=== PATIENT | male | born 1935 | race Caucasian/White ===

== ENCOUNTER 2020-12-21 19:59 | Emergency (ER) | payer MEDICARE, SELFPAY ==
--- NOTE | ~2020-12-21 | XR_ITS ---
XR chest 1V portable 12/21/2020 20:45 Indication: Stroke protocol Procedure: AP portable chest Comparison: No prior studies for comparison. Findings: Bibasilar airspace disease. Cardiomegaly. No significant effusion. No edema. No pneumothora x. No acute osseous abnormality. Impression: 1: Bibasilar airspace disease which may represent atelectasis and/or pneumonia. 2: Cardiomegaly. Reviewed, dictated and finalized at location A. Impression: 1: Bibasilar airspace disease which may represent atelectasis and/or pneumonia. 2: Cardiomegaly.
--- NOTE | ~2020-12-21 | CT_ITS ---
EXAMINATION: CT brain wo con DATE: 12/21/2020 20:09 INDICATION: CVA. Stroke protocol. TECHNIQUE: Computed tomography (CT) of the head was performed without intravenous contrast. The dose- length product was 605.33 mGy-cm. Automated exposure control and iterative reconstruction technique w ere employed. COMPARISON: None FINDINGS: Generalized atrophy. There are scattered mild periventricular and subcortical white matter changes, most likely related to small vessel ischemic disease (microangiopathy). No acute intracrania l hemorrhage, infarction, mass or mass effect. There is intracranial atherosclerosis. Basilar cistern s are patent. Paranasal sinuses and mastoids are pneumatized. No depressed skull fractures. IMPRESSION: 1. No acute intracranial abnormality. 2: Chronic age-related findings. As per stroke protocol, I called these results to emergency room, discussed with Dr. Yo greer MD at 12/21/2020 20:13 CDT. Reviewed, dictated and finalized at location A. IMPRESSION: 1. No acute intracranial abnormality. 2: Chronic age-related findings. As per stroke protocol, I called these results to emergency room, discussed wit h Dr. Yo Brown MD at 12/21/2020 20:13 CDT.
[2020-12-21 20:03] VITALS: BP 175/85; PULSE 80; RESP 27; TEMP 37.1; O2SAT 95
--- NOTE | 2020-12-21 20:03 | ECG_ITS ---
Measurements Intervals [place] Rate: 75 P: 52 AK: 178 QRS: 39 QRSD: 98 T: 124 QT: 396 QTc: 443 Interpretive Statements SINUS RHYTHM DELAYED PRECORDIAL R/S TRANSITION LEFT VENTRICULAR HYPERTROPHY AND ST-T CHANGE BORDERLINE ST-T WAVE ABNORMALITY- INF/HIGH LAT LEADS BORDERLINE ECG Electronically Signed On 12-22-2020 7:39:56 CDT by Lino Kilgore D.O.
--- NOTE | 2020-12-21 20:06 | ED.NEUROSD ---
HPI - Neuro Symptoms/Deficit General Chief Complaint: Suspected CVA Stated Complaint: other Time Seen by Provider: 12/21/20 20:05 Source: family Mode of arrival: other Limitations: no limitations History of Present Illness HPI Narrative: Patient brought in by daughter after sudden onset of slurred speech, facial droop and decreased responsiveness that started approximately 10 minutes prior to arrival. Daughter states that they were on their way to get at a restaurant when the symptoms suddenly happened. Related Data Home Medications Medication Instructions Recorded Confirmed aspirin 81 mg PO DAILY 12/21/20 atorvastatin 12/21/20 lisinopril 12/21/20 metoprolol tartrate 12/21/20 pantoprazole PO 12/21/20 quetiapine 12/21/20 tamsulosin mg PO 12/21/20 Allergies Allergy/AdvReac Type Severity Reaction Status Date / Time NKDA Allergy Unknown Unknown Uncoded 12/21/20 20:38 Review of Systems Review of Systems: ROS unobtainable: Yes unobtainable due to medical condition and unobtainable due to mental status [facility] Social History Social History Gender identity (if verbalized by the patient): Male Comments Past medical history: Coronary artery disease Family history: Noncontributory Social history: Non-smoker no EtOH use Exam Const: General: cooperative, healthy appearing, comfortable, well developed, alert and awake Orientation/consciousness: oriented to person and oriented to place Limitations: no limitations HENMT: Head: normal to inspection, normocephalic and atraumatic Ears: hearing grossly normal bilaterally, TM normal on the right and TM normal on the left General nose exam: Normal external nose present, Normal nares present and No nasal discharge present Face and sinus: normal facial exam Mouth: Yes Normal oral and palatal mucosa present, Yes lip normal, Yes tongue normal and Yes oropharynx normal Throat: posterior oropharynx normal, tonsils normal and uvula midline Eyes: General: appearance normal, both eyes and all related structures Pupils: Equal, round and reactive pupils present EOM: EOMs intact bilaterally Neck: Neck: normal visual inspection, full ROM, no lymphadenopathy and no meningeal signs Chest: Chest palpation & inspection: normal inspection of the chest Resp: Effort & Inspection: normal respiratory effort, able to speak in complete sentences, no respiratory distress and not tachypneic Auscultation: clear to auscultation bilaterally, no crackles, no rales, no rhonchi and no wheezes Cardio: Rate: regular rate Rhythm: regular rhythm GI: Inspection: normal to inspection GI Palp: No abdominal tenderness, Yes Soft to palpation, No Tenderness to palpation present (GI), No Guarding due to palpation present (GI), No Rigid due to palpation and No Rebound tenderness present Auscultation: normal bowel sounds : General: Yes no CVA tenderness Back/Spine/Pelvis: Back: no CVA tenderness Skin: General skin exam: normal color, no rashes or lesions noted, elasticity normal and turgor normal Neuro: Cranial nerves: Yes Equal, round and reactive pupils present Extrem: General: normal to inspection and capillary refill normal Psych: Appearance: grossly normal and well kempt Mental Status: mental status grossly normal Attitude: cooperative Course Vital Signs Vital signs: Vital Signs Pulse Rate 80 12/21/20 20:03 Respiratory Rate 27 H 12/21/20 20:03 Blood Pressure 175/85 H 12/21/20 20:03 Pulse Oximetry 95 12/21/20 20:03 Pulse Rate 87 12/21/20 20:57 Respiratory Rate 25 H 12/21/20 20:57 Blood Pressure 154/73 H 12/21/20 20:57 Pulse Oximetry 96 12/21/20 20:57 MDM - Neuro Symptoms/Deficit MDM Narrative Medical decision making narrative: I reviewed his labs and his CTA. Stroke protocol started. His NIH stroke score is 15. Time of onset is 10 to 15 minutes prior to arrival, hence patient qualifies for TPA. tPA given per stroke protocol. Daughter wants the p
[2020-12-21 20:16] VITALS: BP 168/78; PULSE 77; RESP 18; O2SAT 97
[2020-12-21 20:17] LABS: Basophils Percent Auto 0.5 % (0.2-1.2); Eosinophils Absolute Auto 0.2 K/mm3 (0-0.3); Hematocrit 36.3 % (42.0-52.0); Hemoglobin 11.4 g/dL (14.0-18.0); Immature Granulocyte Absolute 0.01 K/mm3 (0.00-0.031); Immature Granulocyte Percent A 0.2 % (0-0.5); Lymphocytes Absolute Auto 1.89 K/mm3 (0.9-3.2); Lymphocytes Percent Auto 31.3 % (18.3-44.2); Mean Corpuscular HGB Conc 31.4 g/dl (32-36); Mean Corpuscular Hemoglobin 29.2 pg (26-34); Mean Corpuscular Volume 93.1 fl (80-100); Monocytes Absolute Auto 0.8 K/mm3 (0.1-0.6); Monocytes Percent Auto 12.8 % (2.6-8.5); Neutrophils Absolute Auto 3.2 K/mm3 (1.3-6.7); Neutrophils Percent Auto 52.2 % (45.5-73.1); Platelet Count Result 232 k/mm3 (150-375); Red Cell Distribution Width 16.5 % (11.5-14.5)
[2020-12-21 20:26] LABS: INR 1.1; Prothrombin Time 14.5 Seconds (11.1-14.7)
[2020-12-21 20:27] LABS: Alanine Aminotransferase 19 U/L (4-50); Alkaline Phosphatase 49 U/L (38-126); Anion Gap 6 mmol/L (8-16); Aspartate Amino Transferase 34 U/L (17-59); Blood Urea Nitrogen 28 mg/dL (9-20); Calcium 9.4 mg/dL (8.4-10.2); Carbon Dioxide 29 mmol/L (22-30); Chloride 105 mmol/L (98-107); Estimated Glomerular Filt Rate 52; Glucose 94 mg/dL (75-110); Partial Thromboplastin Time 29.3 SECONDS (22.3-36.8); Potassium 4.4 mmol/L (3.4-5.0); Sodium 140 mmol/L (137-145)
[2020-12-21 20:38] LABS: Troponin I 0.034 ng/mL (0.000-0.034)
[2020-12-21 20:57] VITALS: BP 154/73; PULSE 87; RESP 25; O2SAT 95; O2SAT 96
--- NOTE | 2020-12-21 21:07 | PC.NURSE ---
CTA CANCELLED PER VERBAL ORDER FROM DR FARAZ GONZALEZ WILL DO UPON ARRIVAL TO THEIR FACILITY.
[2020-12-21 21:12] VITALS: BP 110/52; PULSE 75; RESP 24; O2SAT 92; O2SAT 95
[2020-12-21 21:27] VITALS: BP 138/77; PULSE 79; RESP 21; O2SAT 95
[2020-12-21 21:41] VITALS: BP 138/77; PULSE 74; RESP 25; O2SAT 94
[2020-12-25 07:10] LABS: Glucose Point of Care 103 mg/dl (65-105)
== END 2020-12-21 21:51 | disposition short-term general hospital (02) ==
PROVIDERS: Emergency Provider Emergency Medicine
DX: I63.9 Cerebral infarction, unspecified (principal); I25.10 Atherosclerotic heart disease of native coronary artery without angina pectoris; R29.715 NIHSS score 15; R94.31 Abnormal electrocardiogram [ECG] [EKG]; I51.7 Cardiomegaly; Z79.82 Long term (current) use of aspirin
CPT/HCPCS: 36415; 37195; 70450; 71045; 80053; 82948; 84484; 85025; 85610; 85730; 93005; 99285; J2997

== ENCOUNTER 2021-04-21 10:59 | Emergency (ER) | payer MEDICARE, SELFPAY ==
[2021-04-21] VITALS (30 sets, daily range): BP systolic 112–140; BP diastolic 46–119; PULSE 45–70; RESP 11–42; TEMP 36.8; O2SAT 92–100
--- NOTE | ~2021-04-21 | XR_ITS ---
EXAMINATION: XR chest 2V EXAM DATE: 04/21/2021 11:41 INDICATION: Syncope. TECHNIQUE: Frontal and lateral projections of the chest obtained and reviewed. Comparison is made to prior examination from 12/21/2020. FINDINGS: There is moderate enlargement of the cardiac silhouette, cardiomegaly and/or pericardial e ffusion. Similar appearance on prior study. No confluent consolidation, pneumothorax or pleural effus ion suspected. There is pulmonary vascular congestion. IMPRESSION: Cardiomegaly and/or pericardial effusion unchanged. Reviewed, dictated and finalized at location A.
--- NOTE | ~2021-04-21 | CT_ITS ---
EXAMINATION: CT brain wo [facility] EXAM DATE: 04/21/2021 12:06 INDICATION: Syncope. TECHNIQUE: Spiral CT of the head was performed without contrast. Axial, coronal and sagittal images were reviewed. The dose-length product (DLP) for this examination was 605.33 mGy-cm. The exposure w as tailored according to patient size, and iterative reconstruction (ASIR) was used as additional dos e reduction technique. Comparison is made to prior examination from 12/21/2020. FINDINGS: There is no acute intraparenchymal hemorrhage. No evidence of intraparenchymal brain mass lesion. No evidence of acute infarction. Please note that initial head CT has limited sensitivity f or small or acute infarctions. There is mild periventricular and subcortical hypodensity, nonspecific but probably related to small vessel ischemic disease. There is moderate prominence of the sulci a nd ventricles related to cerebral atrophy. There is intracranial carotid arteriosclerosis. There a re no extra-axial collections. There is no mass effect or midline shift. The orbits are unremarkabl e. Soft tissue is unremarkable. The visualized sinuses and mastoid air cells are well aerated. IMPRESSION: 1. No acute intracranial findings. 2. Chronic age related findings. Reviewed, dictated and finalized at location A.
--- NOTE | 2021-04-21 11:04 | ECG_ITS ---
Measurements Intervals [place] Rate: 53 P: -8 IN: 225 QRS: 56 QRSD: 85 T: -74 QT: 431 QTc: 405 Interpretive Statements SINUS BRADYCARDIA WITH FIRST DEGREE AV BLOCK LEFT VENTRICULAR HYPERTROPHY AND ST-T CHANGE ST-T WAVE ABNORMALITY IN INFERIOR LEADS- CONSIDER ISCHEMIA BASELINE WANDER- I, II, AVR, AVL, AVF ABNORMAL ECG Electronically Signed On 04-21-2021 11:19:41 CDT by Lino Kilgore D.O.
[2021-04-21 11:48] LABS: Basophils Percent Auto 0.5 % (0.2-1.2); Eosinophils Absolute Auto 0.1 K/mm3 (0-0.3); Eosinophils Percent Auto 2.5 % (0-4.4); Hematocrit 35.3 % (42.0-52.0); Hemoglobin 11.2 g/dL (14.0-18.0); Immature Granulocyte Absolute 0.02 K/mm3 (0.00-0.031); Immature Granulocyte Percent A 0.4 % (0-0.5); Lymphocytes Absolute Auto 0.99 K/mm3 (0.9-3.2); Lymphocytes Percent Auto 17.8 % (18.3-44.2); Mean Corpuscular HGB Conc 31.7 g/dl (32-36); Mean Corpuscular Hemoglobin 30.5 pg (26-34); Mean Corpuscular Volume 96.2 fl (80-100); Mean Platelet Volume 10.7 fl (7.4-10.4); Monocytes Absolute Auto 0.6 K/mm3 (0.1-0.6); Monocytes Percent Auto 11.5 % (2.6-8.5); Neutrophils Absolute Auto 3.8 K/mm3 (1.3-6.7); Neutrophils Percent Auto 67.3 % (45.5-73.1); Platelet Count Result 223 k/mm3 (150-375); Red Blood Count 3.67 M/mm3 (4.6-6.20); Red Cell Distribution Width 14.1 % (11.5-14.5); White Blood Count 5.6 K/mm3 (4.5-10.0)
[2021-04-21 11:58] LABS: INR 1.2; Partial Thromboplastin Time 30.8 SECONDS (22.3-36.8); Prothrombin Time 15.2 Seconds (11.1-14.7)
[2021-04-21 12:03] LABS: Anion Gap 7 mmol/L (8-16); Blood Urea Nitrogen 30 mg/dL (9-20); Calcium 9.2 mg/dL (8.4-10.2); Carbon Dioxide 25 mmol/L (22-30); Chloride 106 mmol/L (98-107); Estimated CRCL calculation 34 ml/min; Estimated Glomerular Filt Rate 48; Glucose 124 mg/dL (65-110); Potassium 4.2 mmol/L (3.4-5.0); Sodium 138 mmol/L (137-145)
[2021-04-21 12:11] LABS: D Dimer 0.27 ug/mL (<0.48)
[2021-04-21 12:15] LABS: NT Pro B Type Natriuretic Pept 4700 pg/mL (5-100); Troponin I 0.023 ng/mL (0.000-0.034)
[2021-04-21 13:27] LABS: Add Urine Microscopic? YES; Appearance Urine Clear (Clear); Bilirubin Urine Negative (Negative); Blood Urine 1+ (Negative); Color Urine Yellow (Yellow); Glucose Urine UA Negative (Negative); Ketones Urine Negative (Negative); Leukocyte Esterase Ur Negative LEU/UL (Negative); Mucus Urine Rare /lpf; Nitrate Urine Negative (Negative); Protein Urine Negative (Negative); Specific Grav Ur 1.019 (1.001-1.035); Squamous Epithelial Cell Urine Rare /hpf (Few); Urobilinogen Urine Negative mg/dL (<2.0); WBC Urine 0-3 /hpf
[2021-04-21] MEDS: SODIUM CHLORIDE 0.9% IV 1,000 ML 999 ML IV CONT (13:43)
--- NOTE | 2021-04-21 14:11 | ED.SYNCOPE ---
HPI - Syncope General Chief Complaint: Syncope Stated Complaint: SYNCOPAL EPISODE Time Seen by Provider: 04/21/21 11:18 History of Present Illness HPI narrative: Patient presents with a syncopal event. Patient reports he was standing at judaism singing when he sat down became pale and had limited responsiveness. Episode was brief and the patient is now acting like his usual self. Family reports he does have a history of dementia coronary artery disease CHF. Family proceeded most of his care at [facility] Medications Medication Instructions Recorded Confirmed aspirin 81 mg PO DAILY 12/21/20 atorvastatin 12/21/20 lisinopril 12/21/20 metoprolol tartrate 12/21/20 pantoprazole PO 12/21/20 quetiapine 12/21/20 tamsulosin mg PO 12/21/20 apixaban [Eliquis] mg 04/21/21 ramelteon mg PO 04/21/21 Allergies Allergy/AdvReac Type Severity Reaction Status Date / Time NKDA Allergy Unknown Unknown Uncoded 12/21/20 20:38 Review of Systems Review of Systems: ROS unobtainable: Yes unobtainable due to mental status PMF[facility] Social History Social History Gender identity (if verbalized by the patient): Male Exam Narrative: GENERAL: Well-appearing, well-nourished, and in no acute distress. HEAD: Normocephalic, atraumatic. EYES: PERRLA and EOMI. ENT: Nares clear, no rhinorrhea or epistaxis. Mucous membranes moist. NECK: Supple. No masses. No JVD CHEST: Clear to auscultation. No respiratory distress. No wheezes rales or rhonchi HEART: Regular rate and rhythm. No murmur heard. Normal peripheral pulses. ABDOMEN: Soft, nontender, nondistended, normal active bowel sounds. EXTREMITIES: Normal range of motion. No edema. SKIN: Warm, dry, no rash. NEURO: Cranial nerves II through XII are intact patient has 5 out of 5 strength in all extremities sensation intact to light touch in all extremities PSYCH: Normal mood and affect. Course Reevaluation(s) Reevaluation #1: Patient is resting comfortably he has been at his baseline throughout his ER stay labs imaging reviewed with patient and family. Patient has multiple appointments scheduled as an outpatient next week with neurology and cardiology with his [facility] team. Discussed continued inpatient evaluation and consideration of MRI with the family versus evaluation with his outpatient team. With patient remaining clinically stable throughout his ER stay work-up largely unremarkable. Family would prefer to be discharged home this is a reasonably safe option. Date: 04/21/21 Time: 16:07 Vital Signs Vital signs: Vital Signs Temperature 36.8 C 04/21/21 10:59 Pulse Rate 50 L 04/21/21 10:59 Respiratory Rate 17 04/21/21 10:59 Blood Pressure 133/57 L 04/21/21 10:59 Pulse Oximetry 98 04/21/21 10:59 Temperature 36.8 C 04/21/21 10:59 Pulse Rate 60 04/21/21 16:20 Respiratory Rate 16 04/21/21 16:20 Blood Pressure 124/51 L 04/21/21 16:20 Pulse Oximetry 100 04/21/21 16:20 MDM - Syncope MDM Narrative Medical decision making narrative: H&P as above, vs reassuring, pt looks clinically well, exam without focal neurological deficits patient appears to be at his baseline mental state per family, labs unremarkable to include troponin, img unremarkable for acute process, additional labs/img considered, symptomatic relief available as needed, on reevaluation pt continues to looks clinically well. Symptoms are of unclear etiology patient has been having issues with vasovagal event. There is lower clinical concern for ACS, CVA. plan to tx/monitor as op w/ pcm f/u findings/plan discussed with pt, pt agree/comfortable with plan, return precautions given Lab Data Result diagrams: 04/21/21 11:20 04/21/21 11:20 Labs: Lab Results 04/21/21 04/21/21 04/21/21 Range/Units 11:20 11:20 11:20 WBC 5.6 (4.5-10.0) K/mm3 RBC 3.67 L (4.6-6.20) M/mm3 Hgb 11.2 L
[2021-04-21 15:42] LABS: Troponin I 0.023 ng/mL (0.000-0.034)
== END 2021-04-21 16:50 | disposition home or self-care (01) ==
PROVIDERS: Emergency Provider Emergency Medicine; PCP Internal Medicine
DX: R55 Syncope and collapse (principal); F03.90 Unspecified dementia, unspecified severity, without behavioral disturbance, psychotic disturbance, mood disturbance, and anxiety; I25.10 Atherosclerotic heart disease of native coronary artery without angina pectoris; I50.9 Heart failure, unspecified; Z79.899 Other long term (current) drug therapy; Z79.82 Long term (current) use of aspirin
CPT/HCPCS: 36415; 70450; 71046; 80048; 81001; 83735; 83880; 84484; 85025; 85380; 85610; 85730; 93005; 96360; 99284; J7030

== ENCOUNTER 2022-04-26 19:16 | Observation (INO) | payer MEDICARE, SELFPAY ==
[2022-04-26] VITALS (26 sets, daily range): BP systolic 109–144; BP diastolic 44–66; PULSE 55–89; RESP 9–20; TEMP 36.2–36.8; O2SAT 95–100; BMI 20.8
--- NOTE | 2022-04-26 | ECG_ITS ---
Measurements Intervals [place] Rate: 62 P: AR: 0 QRS: 0 QRSD: 94 T: 82 QT: 430 QTc: 438 Interpretive Statements SINUS BRADYCARDIA WITH FREQUENT PACS AND [address] & T-WAVE ABNORMALITY ABNORMAL RHYTHM ECG COMPARED TO ECG 04/21/2021 11:06:55 INFEROLATERAL T-WAVE INVERSION IS IMPROVED, ECTOPIC ACTIVITY IS SEEN Electronically Signed On 04-28-2022 14:31:11 CDT by Brenton Kim M.D.
--- NOTE | ~2022-04-26 | XR_ITS ---
EXAMINATION: XR chest 1V portable Exam Date/Time: 04/26/2022 19:25 CDT HISTORY: syncope Comparison: 04/21/2021. RESULT: Lines, tubes, and devices: Incompletely visualized shunt tubing appears to terminate in the right up per quadrant. Lungs and pleura: Senescent change. Cardiomediastinal silhouette: Stable cardiomegaly. Other: No acute osseous or upper abdominal finding. IMPRESSION: No acute cardiopulmonary process. Reviewed, dictated and finalized at location K.
--- NOTE | ~2022-04-26 | CT_ITS ---
EXAMINATION: CT brain wo con DATE: 04/26/2022 20:36 INDICATION: syncope . TECHNIQUE: Computed tomography (CT) of the head was performed without intravenous contrast. The mA wa s adjusted according to patient size. Iterative reconstruction technique was employed. The dose-lengt h product was 605.33 mGy-cm. COMPARISON: None FINDINGS: No acute intracranial hemorrhage or extra-axial fluid collection. No hydrocephalus, mass, or herniation. No acute ischemic infarct. Unremarkable dural venous sinus attenuation. No acute osseous abnormality. The aerated spaces are clear. Right frontal [employer] shunt terminating in the right frontal horn. Moderate atrophy and chronic white terra er change. Atherosclerotic intracranial calcification. IMPRESSION: No acute intracranial process. Reviewed, dictated and finalized at location K.
--- NOTE | ~2022-04-26 | US_ITS ---
EXAMINATION: US carotid duplex BI DATE: 04/28/2022 14:02 INDICATION: Syncope TECHNIQUE: Grayscale, color Doppler, and pulsed Doppler images of the cervical carotid arteries were obtained. The degree of vessel stenosis is placed in one of the following categories: normal, <50%, 5 0-69%, >=70% but less than near-occlusion, near-occlusion, or total occlusion. Note that percent sten osis relative to normal distal artery lumen diameter is indirectly measured from velocity measurement s as described by Tom, et al. Radiology 2003; 229:340-346. Notes: Normal: Peak systolic velocity <125 centimeters/sec and no plaque <50%. Peak systolic velocity <125 ( EDV <40; ICA/CCA PSV ratio <2.0; used these factors only a tandem lesions or low cardiac output or co ntralateral disease) 50-69 %: PSV 125-230 (EDV 40-100; ratio 2-4) >= 70% but less than near occlusion: PSV greater than 230 (EDV > 100; ratio> 4.0) Near Occlusion: PSV that is variable; markedly narrowed lumen Occlusion: Absent flow on color/spectral Doppler and no lumen on francois scale. COMPARISON: None. FINDINGS: RIGHT: The right common carotid artery (CCA) peak systolic velocity (PSV) is 86 cm/s. The right internal car otid artery (ICA) PSV is 83 cm/s. The right ICA end-diastolic velocity (EDV) is 13 cm/s. The right IC A/CCA PSV ratio is 1.0. The external carotid artery (ECA) PSV is 140 cm/s. There is antegrade flow in the right vertebral artery. LEFT: The left CCA PSV is 70 cm/s. The left ICA PSV is 81 cm/s. The left ICA EDV is 17 cm/s. The left ICA/C CA PSV ratio is 1.2. The ECA PSV is 76 cm/s. There is antegrade flow in the left vertebral artery. IMPRESSION: 1. Less than 50% stenosis in the right internal carotid artery by sonographic criteria. 2. Less than 50% stenosis in the left internal carotid artery by sonographic criteria. Reviewed, dictated and finalized at location A. IMPRESSION: 1. Less than 50% stenosis in the right internal carotid artery by sonographic miriam muhammad. 2. Less than 50% stenosis in the left internal carotid artery by sonographic [place].
--- NOTE | 2022-04-26 19:20 | ED.GENADULT ---
HPI - General Adult General Chief complaint: Syncope Stated complaint: syncopal episode while eating dinner Source: RN notes reviewed History of Present Illness HPI narrative: Patient presents emergency department from home via EMS for syncopal episode. History is per the patient as well as EMS the patient was sitting at the dinner table when he became pale and began to have a syncopal episode he was laid to the ground by the family did not fall to the ground per the family patient does have a history of syncopal episodes. Patient currently denies any complaints in bed he denies any feelings of chest pain or syncope prior to the event and currently denies any headaches dizziness chest pain shortness of breath abdominal pain nausea or vomiting. Patient is on Eliquis Related Data Home Medications Medication Instructions Recorded Confirmed aspirin 81 mg tablet 81 mg PO DAILY 12/21/20 atorvastatin 80 mg tablet 12/21/20 lisinopril 5 mg tablet 12/21/20 metoprolol tartrate 25 mg tablet 12/21/20 pantoprazole 40 mg tablet,delayed PO 12/21/20 release quetiapine 25 mg tablet 12/21/20 tamsulosin 0.4 mg capsule mg PO 12/21/20 apixaban 2.5 mg tablet (Eliquis) mg 04/21/21 ramelteon 8 mg tablet mg PO 04/21/21 Allergies Allergy/AdvReac Type Severity Reaction Status Date / Time NKDA Allergy Unknown Unknown Uncoded 12/21/20 20:38 Review of Systems Review of Systems: Gen.: Denies fevers or chills Eyes: Denies eye pain or visual change ENT: Denies congestion Respiratory: Denies shortness of breath or cough CV: See HPI GI: Denies abdominal pain nausea, emesis or diarrhea Musculoskeletal: Denies back pain or muscle pain Neuro: Denies numbness, tingling, weakness or focal weakness Skin: Denies rash Except as documented, all other systems reviewed and negative [facility] Past Medical History Medical History (Updated 04/26/22 @ 22:32 by Yo Darling DO) Hypercholesterolemia Hypertension Social History Social History (Updated 04/26/22 @ 19:21 by Yo Darling DO) Smoking status: Never smoker Gender identity (if verbalized by the patient): Male Exam Narrative: APPEARANCE: No acute distress, nontoxic, resting in bed EYES: EOMI, PERRL HEENT: Normocephalic, atraumatic, OMM RESPIRATORY: No respiratory distress Clear to auscultation bilaterally with no rhonchi wheezing or rales. CARDIOVASCULAR: Regular rate and rhythm without murmurs rubs or gallops. ABDOMINAL: Soft, nontender, nondistended, no rebound or guarding MUSCULOSKELETAl: Moves all extremities. No clubbing, cyanosis or edema. NEURO: Awake and alertx 3 Following commands, speech normal, no focal deficits SKIN:: Warm, dry. No rashes lesions or abrasions PSYCHIATRIC: Normal affect/mood, Course Course Emergency Course: Discussed Dr. Jacome presentation work-up agrees with admission recommends 1 L fluid be given then 70 mL an hour recommends no treatment for her urine at this time with urine culture sent Dr Lozada agrees with consult recommends continuing Eliquis no aspirin at this time Discussed with patient and family results of workup and diagnosis. Discussed need for admission. Patient and family understand and agree to current treatment plan Vital Signs Vital signs: Vital Signs Temperature 98.2 F 04/26/22 19:11 Pulse Rate 59 L 04/26/22 19:11 Respiratory Rate 17 04/26/22 19:11 Blood Pressure 132/66 04/26/22 19:11 Pulse Oximetry 98 04/26/22 19:11 Temperature 98.2 F 04/26/22 19:11 Pulse Rate 89 04/26/22 22:23 Respiratory Rate 17 04/26/22 19:11 Blood Pressure 126/66 04/26/22 22:23 Pulse Oximetry 98 04/26/22 19:11 Medical Decision Making Vital Signs Vital Signs: Vital Signs Temperature 98.2 F 04/26/22 19:11 Pulse Rate 59 L 04/26/22 19:11 Respiratory Rate 17 04/26/22 19:11 Blood Pressure 132/66 04/26/22 19:11 Pulse Oximetry 98 04/26/22 19:11 Temperature 98.2 F 04/26/22 19:1
[2022-04-26 19:46] LABS: Basophils Percent Auto 0.3 % (0.2-1.2); Eosinophils Absolute Auto 0.1 K/mm3 (0-0.3); Eosinophils Percent Auto 1.8 % (0-4.4); Hematocrit 38.4 % (42.0-52.0); Hemoglobin 12.5 g/dL (14.0-18.0); Immature Granulocyte Absolute 0.01 K/mm3 (0.00-0.031); Immature Granulocyte Percent A 0.2 % (0-0.5); Lymphocytes Absolute Auto 1.66 K/mm3 (0.9-3.2); Lymphocytes Percent Auto 26.9 % (18.3-44.2); Mean Corpuscular HGB Conc 32.6 g/dl (32-36); Mean Corpuscular Hemoglobin 30.9 pg (26-34); Mean Platelet Volume 10.5 fl (7.4-10.4); Monocytes Absolute Auto 0.7 K/mm3 (0.1-0.6); Monocytes Percent Auto 11.8 % (2.6-8.5); Neutrophils Absolute Auto 3.7 K/mm3 (1.3-6.7); Platelet Count Result 225 k/mm3 (150-375); Red Blood Count 4.04 M/mm3 (4.6-6.20); White Blood Count 6.2 K/mm3 (4.5-10.0)
[2022-04-26 19:56] LABS: Alanine Aminotransferase 22 U/L (6-50); Albumin Level 3.9 g/dL (3.5-5.1); Alkaline Phosphatase 58 U/L (38-126); Anion Gap 9 mmol/L (8-16); Aspartate Amino Transferase 28 U/L (17-59); Bilirubin,Total 1.1 mg/dL (0.2-1.3); Blood Urea Nitrogen 25 mg/dL (9-20); Carbon Dioxide 25 mmol/L (22-30); Chloride 105 mmol/L (98-107); Estimated CRCL calculation 31 ml/min; Estimated Glomerular Filt Rate 44; Glucose 118 mg/dL (65-110); INR 1.3; Potassium 4.2 mmol/L (3.4-5.0); Prothrombin Time 15.3 Seconds (11.1-14.7); Sodium 139 mmol/L (137-145)
[2022-04-26 20:14] LABS: Troponin I 0.041 ng/mL (0.000-0.034)
[2022-04-26 21:28] LABS: Appearance Urine Clear (Clear); Bilirubin Urine Negative (Negative); Blood Urine Trace-intact (Negative); Color Urine Yellow (Yellow); Glucose Urine UA Negative (Negative); Ketones Urine Negative (Negative); Leukocyte Esterase Ur Trace LEU/UL (Negative); Nitrate Urine Negative (Negative); Protein Urine 1+ mg/dL (Negative); Specific Grav Ur 1.015 (1.001-1.035); Urobilinogen Urine 0.2 mg/dL (<2.0); pH Urine 5.5 (5.0-9.0)
[2022-04-26 21:41] LABS: Mucus Urine Rare /lpf; Squamous Epithelial Cell Urine Occasional /hpf (Few); WBC Urine 31-50 /hpf
[2022-04-26 21:43] LABS: Add Urine Microscopic? YES
[2022-04-26] MEDS: SODIUM CHLORIDE 0.9% IV 1,000 ML 999 ML IV CONT (22:27)
--- NOTE | 2022-04-26 23:54 | PC.NURSE ---
This patient, Larry Swain, was admitted to IMU Room 214-01 at 2318.. Patient/family oriented to hospital policies and general routines including ID bracelet, bed and alarms, visiting hours, pain management, procedures, bathroom and other care routines, personal items, smoking policy, room service/diet, and visiting hours. Information on how to activate the Rapid Response Team has been discussed. Patient/Family are encouraged to report perceived risks to care and to ask questions if they do not understand what they are told or what they should do.
[2022-04-27] VITALS (18 sets, daily range): BP systolic 125–142; BP diastolic 40–71; PULSE 50–113; RESP 14–20; TEMP 36.2–36.8; O2SAT 93–98; BMI 20.8
[2022-04-27] MEDS: SODIUM CHLORIDE 0.9% IV 1,000 ML 70 ML IV CONT (01:16)
[2022-04-27 01:53] LABS: Troponin I 0.031 ng/mL (0.000-0.034)
[2022-04-27 04:50] LABS: Basophils Percent Auto 0.5 % (0.2-1.2); Eosinophils Absolute Auto 0.1 K/mm3 (0-0.3); Eosinophils Percent Auto 1.6 % (0-4.4); Hemoglobin 10.9 g/dL (14.0-18.0); Immature Granulocyte Absolute 0.02 K/mm3 (0.00-0.031); Immature Granulocyte Percent A 0.3 % (0-0.5); Lymphocytes Absolute Auto 1.75 K/mm3 (0.9-3.2); Lymphocytes Percent Auto 27.6 % (18.3-44.2); Mean Corpuscular HGB Conc 32.1 g/dl (32-36); Mean Corpuscular Hemoglobin 30.9 pg (26-34); Mean Corpuscular Volume 96.3 fl (80-100); Mean Platelet Volume 10.8 fl (7.4-10.4); Monocytes Absolute Auto 0.8 K/mm3 (0.1-0.6); Monocytes Percent Auto 12.6 % (2.6-8.5); Neutrophils Absolute Auto 3.6 K/mm3 (1.3-6.7); Neutrophils Percent Auto 57.4 % (45.5-73.1); Platelet Count Result 195 k/mm3 (150-375); Red Blood Count 3.53 M/mm3 (4.6-6.20); Red Cell Distribution Width 14.2 % (11.5-14.5); White Blood Count 6.3 K/mm3 (4.5-10.0)
[2022-04-27 05:19] LABS: Troponin I 0.035 ng/mL (0.000-0.034)
[2022-04-27 05:35] LABS: Anion Gap 6 mmol/L (8-16); Blood Urea Nitrogen 24 mg/dL (9-20); Calcium 8.5 mg/dL (8.4-10.2); Carbon Dioxide 22 mmol/L (22-30); Chloride 109 mmol/L (98-107); Estimated CRCL calculation 36 ml/min; Estimated Glomerular Filt Rate 57; Glucose 90 mg/dL (65-110); Potassium 4.4 mmol/L (3.4-5.0); Sodium 137 mmol/L (137-145)
[2022-04-27] MEDS: APIXABAN 2.5 MG TABLET PO ×2 (09:34→16:17)
[2022-04-27] MEDS: ATORVASTATIN 40 MG TABLET 80 MG PO (09:34)
[2022-04-27] MEDS: ASPIRIN 81 MG ENTERIC TABLET PO (09:34)
[2022-04-27] MEDS: PANTOPRAZOLE 40 MG TABLET PO (09:35)
[2022-04-27] MEDS: TAMSULOSIN HCL 0.4 MG CAPSULE PO (09:35)
--- NOTE | 2022-04-27 10:05 | PM.IMHP ---
H&P: HPI History of Present Illness Date/Time: 04/27/22 10:05 Chief Complaint: Syncope Narrative: Larry Swain is an 86 yo male with hypertension, hyperlipidemia, and prior syncope, who presented to the ED, from home via EMS, for evaluation of syncope. The patient is very [place], appears forgetful and does not recall the events leading up to his hospital stay. No family is at bedside. Medical information was obtained from the ED records. The patient reportedly was in his usual state of health until yesterday when he was sitting at the dinner table yesterday and became pale and put his head down. He was assisted to the ground by his family. When EMS arrived the patient was lying supine on the floor, AOx4, his telemetry rhythm was documented as afib, however, the telemetry strip is not available for review. In the ED, his vitals were stable and he was afebrile. Orthostatic vitals showed >30 bpm increase in HR lying to standing, as well as BP 143/50 supine to 115/60 sitting. Lab work showed mildly elevated BUN 25, creatinine 1.5, GFR 44, glucose 118, and troponin 0.041. UA showed trace leukocytes, WBC 31-50, but no nitrates. His CBC was unremarkable. Head CT and chest x-ray were without acute findings. He was treated with 1 liter of NS fluids. He was admitted to the IMU for further evaluation of syncope. Review of Systems Review of Systems: All systems reviewed & are unremarkable except as noted in HPI and below PMFSH Past Medical History Medical History (Updated 04/27/22 @ 14:24 by Janette Ford APRN) Hypercholesterolemia Hypertension Syncope Family History Family History Father Cerebrovascular accident Mother Cerebrovascular accident Sibling Malignant neoplasm of prostate Myocardial infarction Cerebrovascular accident Social History Social History Smoking packs per day: 1 Smoking cigarettes per day: 20.0 Years smoked: 30 Smoking pack-years: 30.00 Smoking status: Former smoker Tobacco type: cigarettes, pipe, cigars and smokeless tobacco Second hand tobacco smoke exposure: No Alcohol intake: never Substance use: never Gender identity (if verbalized by the patient): Male Spiritual care concerns: No Meds Home Medications and Allergies Home Medications Medication Instructions Recorded Confirmed Type aspirin 81 mg tablet 81 mg PO DAILY 12/21/20 04/27/22 History atorvastatin 80 mg tablet 80 mg PO DAILY 12/21/20 04/27/22 History pantoprazole 40 mg tablet,delayed 40 mg PO DAILY 12/21/20 04/27/22 History release quetiapine 25 mg tablet 12.5 mg PO QHS sleep 12/21/20 04/27/22 History tamsulosin 0.4 mg capsule 0.4 mg PO DAILY 12/21/20 04/27/22 History apixaban 2.5 mg tablet (Eliquis) 2.5 mg PO BID 04/21/21 04/27/22 History Allergies Allergy/AdvReac Type Severity Reaction Status Date / Time NKDA Allergy Unknown Unknown Uncoded 04/26/22 23:09 Vital Signs Vital Signs - 24 hr 04/26/22 19:11 04/26/22 19:45 04/26/22 22:18 Temperature 98.2 F Pulse Rate 59 L 59 L 56 L Respiratory Rate 17 Blood Pressure 132/66 143/50 H Pulse Oximetry 98 Oxygen Delivery 04/26/22 22:20 04/26/22 22:23 04/26/22 19:41 Temperature Pulse Rate 69 89 60 Respiratory Rate 14 Blood Pressure 115/60 126/66 Pulse Oximetry 100 Oxygen Delivery 04/26/22 19:45 04/26/22 20:00 04/26/22 20:15 Temperature Pulse Rate 56 L 66 60 Respiratory Rate 11 L 12 14 Blood Pressure Pulse Oximetry 99 99 98 Oxygen Delivery 04/26/22 20:38 04/26/22 20:40 04/26/22 20:45 Temperature Pulse Rate 60 55 L 68 Respiratory Rate 11 L 10 L 15 Blood Pressure 126/52 L Pulse Oximetry 98 98 Oxygen Delivery 04/26/22 20:49 04/26/22 21:00 04/26/22 21:01 Temperature Pulse Rate 58 L 55 L 57 L Respiratory Rate 19 12 13 Blood Pressure 144/59 H 120/54 L Pulse Oximetry
--- NOTE | 2022-04-27 14:16 | PM.CNCAR ---
Assessment and Plan Assessment and plan (1) Elevated troponin: Code(s): R77.8 - Other specified abnormalities of plasma proteins Status: Acute (2) Syncope: Qualifiers: Syncope type: unspecified Qualified Code(s): R55 - Syncope and collapse Code(s): R55 - Syncope and collapse Status: Acute Plan Elevated troponin likely not from ACS, patient has no s/s consistent with ACS. Orthostatic vital signs were positive upon presentation, and this may have been the reason for his syncopal episode. TTE has been ordered and is pending - will follow up on results. His last echo from [place] showed moderately reduced LVEF. Patient to follow-up with his primary Biofuels Operations Manager Dr. Joseph at [facility] upon discharge. Continue his home cardiac meds of ASA, atorvastatin, and Eliquis. History of Present Illness History of Present Illness Consult date/time: 04/27/22 14:16 Requesting physician: Yo Darling DO Consult reason: Other (Elevated troponin) Reason For Visit: Syncope,Elevated Troponin Narrative: Patient is an 86-year-old male with a history of CAD, atrial fibrillation, cardiomyopathy history of NPH s/p shunt, hypertension, hyperlipidemia who presented with syncopal episode. Patient is a poor historian and unable to provide details. Does not remember syncopal episode that occurred yesterday. States he feels fine and wants to go home. History provided by family, who were at bedside. Per family, patient had just sat down to eat when he pushed his plate away and had told his family that he felt like his blood pressure was low. Family reports that patient became dusky, his mouth drooped open, and he slouched over to the left side. They had called the ambulance, which took them about 15 minutes to get there. By that time, patient was back to normal. Family said prior to sitting down, they had showered him (which he sits on a shower bench) and had shaved his face (he was standing up for that). Patient has a history of syncopal episodes, last one was in October when he was sitting at [employer]. Patient sees Dr. Joseph at [facility]. His last echocardiogram showed moderately reduced LVEF, no significant valvular disease. Workup here shows troponin trend of: 0.041 --> 0.031 --> 0.035. Head CT without acute findings. Orthostatic vital signs were positive in the ED. EKG without acute ischemic changes. Review of Systems Review of Systems: All systems reviewed & are unremarkable except as noted in HPI and below (subjective) [facility] Past Medical History Medical History Hypercholesterolemia Hypertension Syncope Family History Family History Father Cerebrovascular accident Mother Cerebrovascular accident Sibling Malignant neoplasm of prostate Myocardial infarction Cerebrovascular accident Social History Social History Smoking packs per day: 1 Smoking cigarettes per day: 20.0 Years smoked: 30 Smoking pack-years: 30.00 Smoking status: Former smoker Tobacco type: cigarettes, pipe, cigars and smokeless tobacco Second hand tobacco smoke exposure: No Alcohol intake: never Substance use: never Gender identity (if verbalized by the patient): Male Spiritual care concerns: No Meds Home Medications and Allergies Home Medications Medication Instructions Recorded Confirmed Type aspirin 81 mg tablet 81 mg PO DAILY 12/21/20 04/27/22 History atorvastatin 80 mg tablet 80 mg PO DAILY 12/21/20 04/27/22 History pantoprazole 40 mg tablet,delayed 40 mg PO DAILY 12/21/20 04/27/22 History release quetiapine 25 mg tablet 12.5 mg PO QHS sleep 12/21/20 04/27/22 History tamsulosin 0.4 mg capsule 0.4 mg PO DAILY 12/21/20 04/27/22 History apixaban 2.5 mg tablet (Eliquis) 2.5 mg PO BID 04/21/21 04/27/22 History Allergies Allergy/AdvR
[2022-04-27] MEDS: QUEtiapine FUMARATE 12.5 MG TABLET PO (20:10)
[2022-04-28] VITALS (12 sets, daily range): BP systolic 120–162; BP diastolic 52–63; PULSE 43–57; RESP 16–22; TEMP 36–36.4; O2SAT 94–99
--- NOTE | 2022-04-28 | ECHO_ITS ---
Patient Info Name: Larry Swain Age: 86 years : 1935 Gender: Male Ht: 69 in Wt: 162 lbs BSA: 1.90 m2 HR: 54 bpm BP: 162 / 56 mmHg Heart Rhythm: Sinus Rhythm Technical Quality: Fair Exam Date: 04/28/2022 10:47 AM Exam Location: [facility] Patient Status: Outpatient Admit Date: 04/26/2022 Staff Ordering Physician: Ernestina Jacome DO Firewood Cutter: Lisa Alva RDCS Attending Provider: Ernestina Jacome DO Referring Physician: Ayaz ESCOBAR; Exam Type: CA echo doppler color flow Study Info Indications R55 - Syncope and collapse Complete two-dimensional, color flow and Doppler transthoracic echocardiogram is performed. Summary 1. Complete two-dimensional, color flow and Doppler transthoracic echocardiogram is performed. 2. Moderate left ventricular enlargement with ejection fraction 30-35%. 3. Sclerotic aortic valve with trivial aortic regurgitation. 4. Dilated left atrium. Left Ventricle Left ventricular chamber dimension is moderately enlarged. Left ventricular systolic function is moderately reduced, estimated at 30-35%. The left ventricular diastolic function is grade I diastolic dysfunction. Right Ventricle Right ventricular chamber dimension is normal. Left Atria Left atrial chamber dimension is moderately enlarged. Right Atria Right atrial chamber dimension is normal. Aortic Valve The aortic valve is trileaflet. There is mild aortic valve sclerosis. There is trace aortic valve regurgitation. Pulmonic Valve The pulmonic valve is normal. There is mild pulmonic regurgitation. Mitral Valve The mitral valve has normal leaflets. The mitral valve annulus is mildly calcified. Tricuspid Valve The tricuspid valve leaflets are normal. There is trace tricuspid valve regurgitation. Pericardium/Pleural The pericardium appears normal. Aorta The aortic root size at the sinus of Valsalva is normal. Left Ventricular Outflow Tract Name Value Normal LVOT 2D LVOT Diameter 2.1 cm LVOT Doppler LVOT Peak Gradient 2 mmHg LVOT Mean Gradient 1 mmHg LVOT VTI 16 cm LVOT VTI/AV VTI Ratio 0.5 LVOT Stroke Volume 59 ml LVOT CO 3.5 l/min LVOT CI 1.9 l/min/m2 Pulmonic Valve Name Value Normal RVOT Doppler RVOT Peak Gradient 2 mmHg PV Doppler PV Peak Gradient 4 mmHg Mitral Valve Name Value Normal MV Doppl
--- NOTE | 2022-04-28 02:30 | PCRCNOTE ---
Per RN pt refuse Apnea Link.
[2022-04-28 04:57] LABS: Hematocrit 34.2 % (42.0-52.0); Hemoglobin 10.9 g/dL (14.0-18.0); Mean Corpuscular HGB Conc 31.9 g/dl (32-36); Mean Corpuscular Hemoglobin 30.6 pg (26-34); Mean Corpuscular Volume 96.1 fl (80-100); Mean Platelet Volume 10.4 fl (7.4-10.4); Platelet Count Result 190 k/mm3 (150-375); Red Blood Count 3.56 M/mm3 (4.6-6.20); White Blood Count 7.1 K/mm3 (4.5-10.0)
[2022-04-28 05:06] LABS: Alanine Aminotransferase 21 U/L (6-50); Albumin Level 3.2 g/dL (3.5-5.1); Alkaline Phosphatase 48 U/L (38-126); Anion Gap 3 mmol/L (8-16); Aspartate Amino Transferase 30 U/L (17-59); Bilirubin,Total 0.8 mg/dL (0.2-1.3); Blood Urea Nitrogen 24 mg/dL (9-20); Calcium 8.5 mg/dL (8.4-10.2); Carbon Dioxide 28 mmol/L (22-30); Chloride 109 mmol/L (98-107); Cholesterol 85 mg/dL (0-200); Estimated CRCL calculation 29 ml/min; Estimated Glomerular Filt Rate 44; Glucose 93 mg/dL (65-110); HDL Direct 41 mg/dL; Lactate Dehydrogenase 175 U/L (120-246); Magnesium 1.9 mg/dL (1.6-2.3); Potassium 3.9 mmol/L (3.4-5.0); Sodium 140 mmol/L (137-145); Triglycerides 40 mg/dL (<150)
[2022-04-28 05:17] LABS: LDL Cholesterol Direct 33 mg/dL
[2022-04-28 05:19] LABS: Iron 50 ug/dL (49-181)
[2022-04-28 05:30] LABS: Percent Iron Saturation 17 % (20-50)
[2022-04-28] MEDS: ATORVASTATIN 40 MG TABLET 80 MG PO (09:00)
[2022-04-28] MEDS: APIXABAN 2.5 MG TABLET PO (09:00)
[2022-04-28] MEDS: PANTOPRAZOLE 40 MG TABLET PO (09:00)
[2022-04-28] MEDS: ASPIRIN 81 MG ENTERIC TABLET PO (09:00)
--- NOTE | 2022-04-28 11:18 | PM.PNCARD ---
Progress Note: A&P Assessment and Plan (1) Syncope: Qualifiers: Syncope type: unspecified Qualified Code(s): R55 - Syncope and collapse Code(s): R55 - Syncope and collapse Status: Acute Plan 86-year-old man with self-limited syncopal episode which occurred at home. According to the records this is not the 1st time this has happened. He does tend to have sinus bradycardia on his monitor. He also has some junctional escape beats following PACs. There have been no pauses that would provide an indication for pacemaker implantation. He does have moderately depressed left ventricular systolic function by echo which was just being completed in the room as I came in to see him in consultation. He is really not on any guideline directed medical therapy for this. Presumably his physicians at [place] have reasons for this. He can be discharged later today from my perspective he does have established cardiology follow-up at [place] this should continue following discharge from [place]. Brenton Kim MD [facility] Subjective Date/time seen: Date of service: 04/28/22 11:18 Interval history: Follow-up visit in this 86-year-old man with: Episode of syncope that occurred at home. The patient has an unknown cardiac history and follows with a performance improvement coordinator at [place]. He has dementia and can not tell me anything about this. Telemetry here at [place] shows sinus rhythm/sinus bradycardia with some PACs as well as PVCs and some junctional escape beats as well. There have been no pauses or examples of bradycardia that would mandate implantation of a pacemaker device here. He is not taking any medications that would be a source of Shashank arrhythmias. He is comfortable this morning offers no complaints but is obviously demented as he is oriented only to self. Cannot recall why he was brought to the hospital over the weekend Exam Const: General: comfortable and no acute distress HENMT: Mouth: Yes moist mucous membranes Eyes: Sclera: sclerae normal Neck: Neck: supple and no JVD Resp: Effort & Inspection: normal respiratory effort Auscultation: clear to auscultation bilaterally Cardio: Rate: regular rate Rhythm: regular rhythm GI: GI Palp: Yes Soft to palpation Auscultation: normal bowel sounds Skin: General skin exam: normal color Neuro: Other: Patient is alert and responsive but oriented only to self. Pleasant and cooperative Extrem: General: normal to inspection Objective Data Vital Signs Vital Signs: Vital Signs - 24 hr 04/27/22 11:30 04/27/22 11:35 04/27/22 11:40 Temperature Pulse Rate Respiratory Rate Blood Pressure 128/52 L 125/71 141/58 H Pulse Oximetry Oxygen Delivery 04/27/22 12:00 04/27/22 15:51 04/27/22 12:00 Temperature 36.6 C 36.8 C Pulse Rate 60 62 60 Respiratory Rate 14 16 Blood Pressure 142/51 H 125/52 L Pulse Oximetry 97 98 Oxygen Delivery 04/27/22 14:00 04/27/22 16:00 04/27/22 18:00 Temperature Pulse Rate 68 62 68 Respiratory Rate Blood Pressure Pulse Oximetry Oxygen Delivery 04/27/22 20:17 04/27/22 20:00 04/27/22 20:00 Temperature 36.4 C L Pulse Rate 56 L 57 L Respiratory Rate 16 Blood Pressure 134/53 L Pulse Oximetry 98 98 Oxygen Delivery Room Air 04/27/22 22:00 04/27/22 22:57 04/28/22 00:00 Temperature 36.2 C L Pulse Rate 58 L 69 56 L Respiratory Rate 16 Blood Pressure 136/42 L Pulse Oximetry 94 Oxygen Delivery 04/28/22 00:00 04/28/22 02:00 04/28/22 03:13 Temperature 36.4 C Pulse Rate 54 L 54 L Respiratory Rate 20 Blood Pressure 162/56 H Pulse Oximetry 94 96 Oxygen Delivery Room Air 04/28/22 04:00 04/28/22 04:00 04/28/22 06:00 Temperature Pulse Rate 50 L 50 L Respiratory Rate Blood Pressure Pulse Oximetry 96 Oxygen Delivery Room Air 04/28/22 07:35 Temperature 36.0 C L Pulse Rate 57 L Respiratory Rate 22 H Blood Pressure 149/63 H
[2022-04-28] MEDS: MAGNESIUM OXIDE 400 MG TABLET PO (11:25)
[2022-04-28] MEDS: POTASSIUM CHLORIDE 20 MEQ TABLET 40 MEQ PO (11:26)
--- NOTE | 2022-04-28 12:00 | PM.DS ---
DS: Admitting Diagnosis Discharge Date 04/28/2022 1538 Admitting Diagnosis Syncope Elevated troponin Orthostatic hypotension Acute renal insufficiency DS: Discharge Diagnosis Discharge Diagnosis (1) Syncope: Qualifiers: Syncope type: unspecified Qualified Code(s): R55 - Syncope and collapse Code(s): R55 - Syncope and collapse Status: Acute Assessment and Plan: Patient presented to the ED, via EMS, following a syncopal episode. Orthostatic vitals BP decreased ~30 mmHg lying to sitting and HR increased >30 bpm lying to standing. BUN and creatinine mildly elevated on admission suggesting hypovolemia and orthostasis as contributing to syncopal episode, however, questionable afib reported in EMS report, troponin 0.041 (mildly elevated) on admission and patient with comorbid HTN and HLD. Head CT negative Chest x-ray negative Trend cardiac enzymes 0.041 to 0.031 to 0.035. No c/o chest pain/pressure. Cardiology consulted and appreciate recommendations. Given 1L NS bolus in ED and started on NS@75 mL/hour. Repeat Orthostatic vitals negative. He is not on any blood pressure lowering medications, although he does take tamsulosin daily which can contribute to orthostatic hypotension. Will change to HS dosing. Transthoracic echocardiogram read by cardiology and with some LV systolic dysfunction noted. Patient to follow up with his Retail Office Manager at [place]. Carotid ultrasound <50% stenosis bilaterally. Does not appear postictal No s/s hypoglycemia TSH within normal limits PT/OT evaluation and recommend home health. To be arranged by memory care director. (2) Elevated troponin: Code(s): R77.8 - Other specified abnormalities of plasma proteins Status: Acute Assessment and Plan: Troponin 0.041 to 0.031 to 0.035. Mildly elevated. No chest pain or ischemic findings on telemetry. 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 BUN 25, creatinine 1.5, GFR 44 on admission. Appears mildly elevated from baseline. H/O HTN with BP 109/51 to 142/51 this admission. Given approximately 2 liters NS fluids. Repeat chemistry shows improved renal function- BUN 24, creatinine 1.2-1.5, GFR 44-57 Maintain adequate BP, avoid hyper or hypotension. Avoid nephrotoxic agents. Encourage to avoid dehydration. (4) Anemia: Code(s): D64.9 - Anemia, unspecified Status: Acute Assessment and Plan: Presumed chronic. H/H 11.4 to 12.5/38%. H/H 10.9/34% normal MCV, MCH and MCHC. RDW 14.2. Likely some dilutional effect. iron panel mildly low sat 17, B12 and folate, ferritin, LDH - within normal limits. (5) Hypertension: Qualifiers: Hypertension type: primary hypertension Qualified Code(s): I10 - Essential (primary) hypertension Code(s): I10 - Essential (primary) hypertension Status: Chronic Assessment and Plan: Chronic, stable, +orthostatic vitals in ED on 04/26/22 (6) Hypercholesterolemia: Code(s): E78.00 - Pure hypercholesterolemia, unspecified Status: Chronic Assessment and Plan: chronic, stable (7) Urinary tract infection: Code(s): N39.0 - Urinary tract infection, site not specified Status: Acute Assessment and Plan: Urine culture with 50-100,000 coag-negative staph growth (8) Orthostatic hypotension: Code(s): I95.1 - Orthostatic hypotension Status: Acute Assessment and Plan: As above. Not currently on BP medications. (9) Bradycardia: Code(s): R00.1 - Bradycardia, unspecified Status: Acute Assessment and Plan: HR 43-69. Telemetry with SB with frequent PACs and occasional junctional beats following PACs. Cardiology consulted and aware. He is not on AV melony bl
--- NOTE | 2022-04-28 13:47 | PC.NURSE ---
Pt to ultrasound via wheelchair
--- NOTE | 2022-04-28 14:04 | PC.NURSE ---
Pt returned from ultrasound
== END 2022-04-28 16:40 | disposition home health service (06) ==
LOC: ANHED 22:32 → ANHIMU 23:10
PROVIDERS: Admitting Provider Internal Medicine; Emergency Provider Emergency Medicine; PCP Internal Medicine; Visit Provider Nurse Practitioner Family
DX: R55 Syncope and collapse (principal); R77.8 Other specified abnormalities of plasma proteins; N28.9 Disorder of kidney and ureter, unspecified; D64.9 Anemia, unspecified; I10 Essential (primary) hypertension; E78.00 Pure hypercholesterolemia, unspecified; N39.0 Urinary tract infection, site not specified; I49.3 Ventricular premature depolarization; I25.10 Atherosclerotic heart disease of native coronary artery without angina pectoris; I48.91 Unspecified atrial fibrillation; I42.9 Cardiomyopathy, unspecified; E78.5 Hyperlipidemia, unspecified; R94.31 Abnormal electrocardiogram [ECG] [EKG]; H91.90 Unspecified hearing loss, unspecified ear; Z84.89 Family history of other specified conditions; F03.90 Unspecified dementia, unspecified severity, without behavioral disturbance, psychotic disturbance, mood disturbance, and anxiety; I35.1 Nonrheumatic aortic (valve) insufficiency; Z98.2 Presence of cerebrospinal fluid drainage device; Z87.891 Personal history of nicotine dependence; Z79.82 Long term (current) use of aspirin; Z79.01 Long term (current) use of anticoagulants; Z79.899 Other long term (current) drug therapy; Z82.49 Family history of ischemic heart disease and other diseases of the circulatory system; Z82.3 Family history of stroke; Z23 Encounter for immunization
CPT/HCPCS: 36415; 70450; 71045; 80048; 80053; 80061; 81001; 82607; 82728; 82746; 83540; 83550; 83615; 83735; 84443; 84484; 85025; 85027; 85610; 85730; 87086; 87147; 87181; 87186; 90471; 90694; 93005; 93306; 93880; 96360; 96361; 97161; 97165; 97530; 99285; A9270; G0008; G0378; J7030

== ENCOUNTER 2022-05-09 13:10 | Outpatient (NON) | payer MEDICARE, SELFPAY ==
[2022-05-09 20:00] LABS: Add Urine Microscopic? YES; Appearance Urine Cloudy (Clear); Bilirubin Urine Negative (Negative); Blood Urine Negative (Negative); Color Urine Yellow (Yellow); Glucose Urine UA Negative (Negative); Ketones Urine Negative (Negative); Leukocyte Esterase Ur Negative LEU/UL (Negative); Nitrate Urine Negative (Negative); Protein Urine Negative (Negative); Specific Grav Ur 1.012 (1.001-1.035); Squamous Epithelial Cell Urine Rare /hpf (Few); Urobilinogen Urine Negative mg/dL (<2.0); WBC Urine 0-3 /hpf
[2022-05-09 20:30] LABS: Anion Gap 9 mmol/L (8-16); Blood Urea Nitrogen 24 mg/dL (9-20); Carbon Dioxide 22 mmol/L (22-30); Chloride 106 mmol/L (98-107); Estimated Glomerular Filt Rate 41; Glucose 138 mg/dL (65-110); Potassium 4.1 mmol/L (3.4-5.0); Sodium 137 mmol/L (137-145)
== END 2022-05-09 13:11 | disposition home or self-care (01) ==
PROVIDERS: PCP Internal Medicine; Visit Provider Internal Medicine
DX: R82.90 Unspecified abnormal findings in urine (principal)
CPT/HCPCS: 80048; 81001

== ENCOUNTER 2022-09-21 10:55 | Observation (INO) | payer MEDICARE, SELFPAY ==
[2022-09-21] VITALS (17 sets, daily range): BP systolic 115–144; BP diastolic 49–75; PULSE 50–74; RESP 12–20; TEMP 36.3–36.9; O2SAT 96–100; BMI 24.5
--- NOTE | ~2022-09-21 | CT_ITS ---
EXAMINATION: CT brain wo con DATE: 09/21/2022 11:45 INDICATION: Syncope, confusion TECHNIQUE: Computed tomography (CT) of the head was performed without intravenous contrast. The mA wa s adjusted according to patient size. Iterative reconstruction technique was employed. Exam dose: 60 5.33 mGy-cm total exam DLP. COMPARISON: 04/26/2022 CT brain FINDINGS: Bilateral vertebral artery calcifications and prominent bilateral carotid siphon internal c arotid artery calcifications. There is nonspecific diminished attenuation of the cerebral white matter, likely due to chronic small vessel ischemic changes. There is central and cortical cerebral and cerebellar atrophy. No intracranial mass lesion or hemorrhage, midline shift or mass effect. No cerebrovascular accident is detected. Right ventricular shunt catheter is in the right frontal horn. No change in ventricular size since . No subdural or epidural hematoma. No fracture or bone destruction of the cranial vault. The mastoid air cells and included paranasal si nuses are unremarkable. IMPRESSION: Right ventriculoperitoneal shunt Cerebral atherosclerosis and chronic small vessel ischemic changes Cerebral and cerebellar atrophy No acute intracranial finding or significant change since 04/26/2022 Reviewed, dictated and finalized at [facility]. Reviewed, dictated and finalized at location A. ORK CONTROL TECHNICIAN
--- NOTE | ~2022-09-21 | XR_ITS ---
XR shunt series DATE: 09/21/2022 11:41 INDICATION: Syncope, confusion TECHNIQUE: AP and lateral skull. AP abdomen and pelvis COMPARISON: None FINDINGS: Right-sided ventricular shunt, connector and catheter tubing appear intact. The distal tip overlies the right paracolic gutter. IMPRESSION: Right ventricular peritoneal shunt appears intact Reviewed, dictated and finalized at [facility]. Reviewed, dictated and finalized at location [facility]. COMMUNICATIONS OPERATOR
--- NOTE | ~2022-09-21 | XR_ITS ---
XR chest 2V DATE: 09/21/2022 11:41 INDICATION: Syncope, confusion TECHNIQUE: AP and lateral views COMPARISON: 04/26/2022 portable AP chest FINDINGS: Cardiomegaly. Aortic arch calcification. No hilar or mediastinal enlargement. Mild atelectasis at the left lung base. The lungs otherwise appear clear. No pleural effusion or pulm onary vascular congestion or pneumothorax. Diffuse osteopenia. Right ventriculoperitoneal shunt catheter tubing is noted. IMPRESSION: Cardiomegaly, aortic atherosclerosis Right ventriculoperitoneal shunt line Minimal atelectasis at left lung base Osteopenia Reviewed, dictated and finalized at location [facility]. GE CLINICIAN
--- NOTE | 2022-09-21 10:56 | ECG_ITS ---
Measurements Intervals Rector Rate: 51 P: 60 CA: 207 QRS: 5 QRSD: 84 T: 127 QT: 437 QTc: 406 Interpretive Statements SINUS BRADYCARDIA NONSPECIFIC ST AND T-WAVE ABNORMALITY ABNORMAL ECG COMPARED TO ECG 04/26/2022 19:20:07 NO SIGNIFICANT CHANGES Electronically Signed On 09-22-2022 7:05:02 RANGE EXAMINER by Brenton Kim M.D.
--- NOTE | 2022-09-21 11:02 | ED.SYNCOPE ---
HPI - Syncope General Chief Complaint: Syncope Stated Complaint: syncope Time Seen by Provider: 09/21/22 10:56 Source: patient, family and EMS Mode of arrival: EMS Limitations: other (patient does not remember incident) History of Present Illness HPI narrative: This is an 87-year-old male that presents to the emergency department after a syncopal episode today. Reportedly patient was at [employer] and slumped forward. He was resting his head on the pew and started snoring. About 5-10 minuted later upon EMS arrival patient was back to his baseline. Patient does not remember the incident. Family report he has had many similar episodes in the past. Patient has no complaints currently. Denies chest pain, shortness of breath, abdominal pain, vomiting, or numbness. Related Data Home Medications Medication Instructions Recorded Confirmed aspirin 81 mg tablet 81 mg PO DAILY 12/21/20 04/27/22 atorvastatin 80 mg tablet 80 mg PO DAILY 12/21/20 04/27/22 pantoprazole 40 mg tablet,delayed 40 mg PO DAILY 12/21/20 04/27/22 release quetiapine 25 mg tablet 12.5 mg PO QHS sleep 12/21/20 04/27/22 apixaban 2.5 mg tablet (Eliquis) 2.5 mg PO BID 04/21/21 04/27/22 Allergies Allergy/AdvReac Type Severity Reaction Status Date / Time cephalexin Allergy Unknown Rash Verified 09/21/22 11:55 Review of Systems Review of Systems: CONSTITUTIONAL: Denies fever CARDIOVASCULAR: Denies chest pain, or edema. RESPIRATORY: Denies dyspnea. GASTROINTESTINAL: Denies abdominal pain, vomiting NEUROLOGIC: Denies numbness, or weakness. All systems reviewed & are unremarkable except as noted in HPI and below PMFSH Past Medical History Medical History (Updated 09/21/22 @ 15:16 by Le Contreras PA-C) Bladder cancer Cerebrovascular accident (2020) Chronic kidney disease, stage 3 Coronary artery disease Gastroesophageal reflux disease Hearing loss Heart failure with reduced ejection fraction X 2021 showed a moderately enlarged LV chamber, moderately reduced LV systolic function with an EF of 30 to 35%, and grade 1 diastolic dysfunction. Hypercholesterolemia Hypertension Syncope Transient ischemic attack Surgical History Surgical History (Updated 09/21/22 @ 15:16 by Le Contreras PA-C) History of bilateral cataract extraction History of cardiac catheterization History of coronary artery stent placement History of transurethral resection of bladder tumor (TURBT) History of ventriculoperitoneal shunting Family History Family History Father Cerebrovascular accident Mother Cerebrovascular accident Sibling Malignant neoplasm of prostate Myocardial infarction Cerebrovascular accident Social History Social History (Updated 09/21/22 @ 15:16 by Le Contreras PA-C) Social History: Surrogate medical decision maker: Code status: Full code. Smoking packs per day: 1 Smoking cigarettes per day: 20.0 Years smoked: 30 Smoking pack-years: 30.00 Smoking status: Former smoker Tobacco type: cigarettes, pipe, cigars and smokeless tobacco Second hand tobacco smoke exposure: No Alcohol intake: never Substance use: never Spiritual care concerns: No Exam Narrative: GENERAL: Elderly, well-nourished, and in no acute distress. HEAD: Normocephalic, atraumatic. EYES: PERRLA and EOMI. ENT: Nares clear, no rhinorrhea or epistaxis. Mucous membranes moist. Oropharynx without tonsillar hypertrophy exudate or other lesions. NECK: Supple. No adenopathy or masses. No JVD CHEST: Clear to auscultation. No respiratory distress. No wheezes rales or rhonchi HEART: Regular rate and rhythm. No murmur heard. Normal peripheral pulses. ABDOMEN: Soft, nontender, nondistended, normal active bowel sounds. EXTREMITIES: Normal range of motion. No edema or obvious deformity. SKIN: Warm, dry, no rash. NEURO: No focal deficits. Alert and oriented x3. CN II-XII grossly intact PSYCH: Normal mo
[2022-09-21 11:16] LABS: Basophils Percent Auto 0.4 % (0.2-1.2); Eosinophils Absolute Auto 0.1 K/mm3 (0-0.3); Eosinophils Percent Auto 1.8 % (0-4.4); Hematocrit 37.9 % (42.0-52.0); Hemoglobin 12.4 g/dL (14.0-18.0); Immature Granulocyte Absolute 0.01 K/mm3 (0.00-0.031); Immature Granulocyte Percent A 0.2 % (0-0.5); Lymphocytes Absolute Auto 1.14 K/mm3 (0.9-3.2); Mean Corpuscular HGB Conc 32.7 g/dl (32-36); Mean Corpuscular Hemoglobin 31.8 pg (26-34); Mean Corpuscular Volume 97.2 fl (80-100); Mean Platelet Volume 10.5 fl (7.4-10.4); Monocytes Absolute Auto 0.5 K/mm3 (0.1-0.6); Monocytes Percent Auto 9.6 % (2.6-8.5); Neutrophils Absolute Auto 3.6 K/mm3 (1.3-6.7); Platelet Count Result 195 k/mm3 (150-375); Red Cell Distribution Width 13.6 % (11.5-14.5); White Blood Count 5.4 K/mm3 (4.5-10.0)
[2022-09-21 11:27] LABS: INR 1.3; Partial Thromboplastin Time 28.4 SECONDS (22.3-36.8); Prothrombin Time 15.5 Seconds (11.1-14.7)
[2022-09-21 11:36] LABS: Alanine Aminotransferase 21 U/L (6-50); Albumin Level 3.6 g/dL (3.5-5.1); Alkaline Phosphatase 44 U/L (38-126); Anion Gap 2 mmol/L (8-16); Aspartate Amino Transferase 28 U/L (17-59); Bilirubin,Total 0.8 mg/dL (0.2-1.3); Blood Urea Nitrogen 29 mg/dL (9-20); Carbon Dioxide 29 mmol/L (22-30); Chloride 103 mmol/L (98-107); Estimated CRCL calculation 26 ml/min; Estimated Glomerular Filt Rate 38; Glucose 163 mg/dL (65-110); Potassium 4.3 mmol/L (3.4-5.0); Sodium 134 mmol/L (137-145)
[2022-09-21 11:46] LABS: Troponin I 0.026 ng/mL (0.000-0.034)
[2022-09-21] MEDS: SODIUM CHLORIDE 0.9% IV 500 ML 999 ML IV CONT ×2 (11:57→14:19)
[2022-09-21 12:56] LABS: Appearance Urine Clear (Clear); Bacteria Urine None Seen /hpf; Bilirubin Urine Negative (Negative); Blood Urine Negative (Negative); Color Urine Dark Yellow (Yellow); Glucose Urine UA Negative (Negative); Hyaline Casts Urine Present /lpf; Ketones Urine Trace mg/dL (Negative); Leukocyte Esterase Ur Trace LEU/UL (Negative); Need Manual Microscopic Reviewed; Nitrate Urine Negative (Negative); Protein Urine 1+ mg/dL (Negative); RBC Urine 0-2 /hpf (0-2); Squamous Epithelial Cell Urine Occasional /hpf (Few); pH Urine 5.5 (5.0-9.0)
[2022-09-21 13:03] LABS: Add Urine Microscopic? YES
--- NOTE | 2022-09-21 13:25 | PC.NURSE ---
called to add on HGBA1C for the second time at [id number]
[2022-09-21 13:38] LABS: Hemoglobin A1C 5.6 % (<5.7)
--- NOTE | 2022-09-21 15:10 | PM.IMHP ---
H&P: HPI History of Present Illness Date/Time: 09/21/22 15:10 Chief Complaint: Syncope. Narrative: This is an 87-year-old male with hypertension, hyperlipidemia, chronic kidney disease, history of syncope, and heart failure with reduced ejection fraction a recent EF of 30 to 35% who presented to the emergency department via EMS from [facility] for evaluation after a syncopal episode. The patient is forgetful and is not the greatest historian and thus a majority of the following history is obtained from his daughter who is at bedside with the patient's permission. He felt okay when he got up this morning and he went with his family to [facility]. During the service he kept putting his head down on the pew and at one point he became unconscious for upwards of 3 minutes. Daughter reports that he was snoring and very pale. EMS was summoned and on their arrival his heart rate was in the 40s and blood pressure was initially normal but apparently dropped somewhat in route to the hospital. He does not recall what happened and reports that he feels just fine and is ready to go home. Daughter reports that he has had a similar episode while at [facility] many months ago and he has had syncopal episodes at home as well. She thinks he has had issues with orthostatic hypotension in the past. She does not think he could have accidentally taken too much in the way of medication. Labs done in the ED were reviewed and they are pretty stable when compared to previous draws though creatinine may be a bit elevated than usual. Brain CT did not show any acute findings. WARD NURSE shunt appears to be intact. No significant findings were noted on chest x-ray. EKG showed a sinus bradycardia with ST segment changes in the high lateral leads. Troponin has been negative thus far. Patient has no complaints whatsoever of chest pain, pleuritic pain, or palpitations. He also denies as of lightheadedness and dizziness. No nausea, vomiting, or sweats. He is being admitted in this setting for close monitoring overnight. Review of Systems Review of Systems: Twelve systems were reviewed. Somewhat limited as the patient is forgetful. Daughter states he has not had any recent illnesses or change in medication. He has not had any complaints recently. [facility] Past Medical History Medical History (Updated 09/21/22 @ 23:17 by Le Contreras PA-C) Benign prostatic hyperplasia Bladder cancer Cerebrovascular accident (2020) Chronic anticoagulation Chronic kidney disease, stage 3 Coronary artery disease Gastroesophageal reflux disease Hearing loss Heart failure with reduced ejection fraction X 2021 showed a moderately enlarged LV chamber, moderately reduced LV systolic function with an EF of 30 to 35%, and grade 1 diastolic dysfunction. Hypercholesterolemia Hypertension Syncope Transient ischemic attack Surgical History Surgical History (Updated 09/21/22 @ 15:16 by Le Contreras PA-C) History of bilateral cataract extraction History of cardiac catheterization History of coronary artery stent placement History of transurethral resection of bladder tumor (TURBT) History of ventriculoperitoneal shunting Family History Family History Father Cerebrovascular accident Mother Cerebrovascular accident Sibling Malignant neoplasm of prostate Myocardial infarction Cerebrovascular accident Social History Social History (Updated 09/21/22 @ 23:12 by Le Contreras PA-C) Social History: Healthcare power of county attorney: Kristina Guaman, daughter. Code status: Do not resuscitate. Smoking packs per day: 0.5 Smoking cigarettes per day: 10.0 Years smoked: 41 Smoking pack-years: 20.50 Smoking status: Former smoker Tobacco type: cigarettes and pipe Second hand tobacco smoke exposure: No Alcohol intake: never Substance use: never Substance use type: does not use Additional living arrangements comments: . [place]
[2022-09-21 15:20] LABS: Influenza A QL RT-PCR Negative (Negative); Influenza B QL RT-PCR Negative (Negative); SARS-CoV-2 RNA PCR Negative
--- NOTE | 2022-09-21 18:20 | ADMGEN ---
This patient, Larry Swain, was admitted to [facility] Surg Room 333-01. Patient/family oriented to hospital policies and general routines including ID bracelet, bed and alarms, visiting hours, pain management, procedures, bathroom and other care routines, personal items, smoking policy, room service/diet, and visiting hours. Information on how to activate the Rapid Response Team has been discussed. Patient/Family are encouraged to report perceived risks to care and to ask questions if they do not understand what they are told or what they should do.
[2022-09-22] VITALS (14 sets, daily range): BP systolic 108–147; BP diastolic 46–94; PULSE 48–92; RESP 15–20; TEMP 35.7–37.1; O2SAT 93–99
[2022-09-22] MEDS: TAMSULOSIN HCL 0.4 MG CAPSULE PO ×2 (01:54→20:46)
[2022-09-22] MEDS: ATORVASTATIN 40 MG TABLET 80 MG PO ×2 (01:54→20:46)
[2022-09-22] MEDS: APIXABAN 2.5 MG TABLET PO ×3 (01:54→17:58)
[2022-09-22] MEDS: QUEtiapine FUMARATE 12.5 MG TABLET PO ×2 (01:54→20:46)
[2022-09-22 06:34] LABS: Hematocrit 36.4 % (42.0-52.0); Hemoglobin 11.7 g/dL (14.0-18.0); Mean Corpuscular HGB Conc 32.1 g/dl (32-36); Mean Corpuscular Hemoglobin 31.3 pg (26-34); Mean Corpuscular Volume 97.3 fl (80-100); Platelet Count Result 180 k/mm3 (150-375); Red Blood Count 3.74 M/mm3 (4.6-6.20); Red Cell Distribution Width 13.4 % (11.5-14.5); White Blood Count 6.7 K/mm3 (4.5-10.0)
[2022-09-22 06:58] LABS: Alanine Aminotransferase 19 U/L (6-50); Albumin Level 3.3 g/dL (3.5-5.1); Alkaline Phosphatase 45 U/L (38-126); Anion Gap 1 mmol/L (8-16); Aspartate Amino Transferase 26 U/L (17-59); Bilirubin,Total 1.2 mg/dL (0.2-1.3); Blood Urea Nitrogen 23 mg/dL (9-20); Calcium 8.6 mg/dL (8.4-10.2); Carbon Dioxide 27 mmol/L (22-30); Chloride 105 mmol/L (98-107); Estimated CRCL calculation 34 ml/min; Estimated Glomerular Filt Rate 52; Glucose 79 mg/dL (65-110); Magnesium 1.9 mg/dL (1.6-2.3); Potassium 3.8 mmol/L (3.4-5.0); Sodium 133 mmol/L (137-145)
[2022-09-22] MEDS: PANTOPRAZOLE 40 MG TABLET PO (09:46)
[2022-09-22] MEDS: ASPIRIN 81 MG CHEWABLE TABLET PO (09:46)
[2022-09-22] MEDS: CHOLECALCIFEROL 1,000 UNITS TABLET 2000 UNITS PO (09:46)
--- NOTE | 2022-09-22 11:13 | PM.IMPN ---
Progress Note: A&P Assessment and Plan (1) Syncope: Code(s): R55 - Syncope and collapse Status: Acute Assessment and Plan: Telemetry reviewed. He does have frequent PVCs. Have Cardiology evaluate the patient. Also times it appears his heart rates in the 40s. No repeat of symptoms in the hospital. Blood pressure appears to be labile. Will await plans per Cardiology. (2) Chronic kidney disease, stage 3: Code(s): N18.30 - Chronic kidney disease, stage 3 unspecified Status: Acute (3) Heart failure with reduced ejection fraction: Code(s): I50.20 - Unspecified systolic (congestive) heart failure Status: Acute (4) Bradycardia: Code(s): R00.1 - Bradycardia, unspecified Status: Acute (5) Hypertension: Qualifiers: Hypertension type: primary hypertension Qualified Code(s): I10 - Essential (primary) hypertension Code(s): I10 - Essential (primary) hypertension Status: Chronic (6) Benign prostatic hyperplasia: Code(s): N40.0 - Benign prostatic hyperplasia without lower urinary tract symptoms Status: Acute (7) Chronic anticoagulation: 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 Weight: 73 kg. BMI: 24.5. HEENT: Wearing corrective lenses. He is very hard of hearing. PERRL, EOMI. Sclera anicteric. Conjunctiva mildly injected. Tacky mucous membranes. Oropharynx poorly visualized. Neck: Supple. No obvious carotid bruits. Respiratory: Lungs are clear to auscultation bilaterally. Cardiovascular: Regular rate and rhythm with S1-S2. Gastrointestinal: Abdomen is soft, nontender, and nondistended with positive bowel sounds. Skin: Warm and dry. No rash or lesions on limited exam. Extremities: No cyanosis, clubbing, or significant edema. Radial and pedal pulses intact. Neurological: Alert to name and date of . He is aware that he is in the hospital. Cranial nerves 2-12 are grossly intact. Speech is clear. No facial asymmetry. No gross focal deficits to casual conversation. Psychiatric: Pleasantly confused and cooperative. Appropriate mood. Objective Data Vital Signs Vital Signs: Vital Signs - 24 hr 09/21/22 11:15 09/21/22 12:37 09/21/22 12:38 Temperature Pulse Rate 53 L 58 L 54 L Respiratory Rate 15 Blood Pressure 126/58 L 131/49 L Pulse Oximetry 09/21/22 12:38 09/21/22 13:22 09/21/22 14:20 Temperature Pulse Rate 68 52 L 50 L Respiratory Rate 18 13 Blood Pressure 134/75 126/58 L 119/57 L Pulse Oximetry 100 99 09/21/22 12:36 09/21/22 12:46 09/21/22 13:01 Temperature Pulse Rate 74 52 L 54 L Respiratory Rate 20 12 12 Blood Pressure 134/75 128/49 L 121/49 L Pulse Oximetry 99 98 09/21/22 13:16 09/21/22 13:31 09/21/22 13:46 Temperature Pulse Rate 60 52 L 53 L Respiratory Rate 20 14 17 Blood Pressure 126/58 L 134/54 L 125/53 L Pulse Oximetry 99 99 99 09/21/22 14:31 09/21/22 16:15 09/21/22 21:38 Temperature 97.6 F 97.4 F L Pulse Rate 50 L 56 L 60 Respiratory Rate 12 16 18 Blood Pressure 133/57 L 131/58 L 144/71 H Pulse Oximetry 97 99 96 09/22/22 00:00 09/22/22 04:00 09/22/22 06:00 Temperature 96.2 F L Pulse Rate 59 L 56 L 65 Respiratory Rate 15 Blood Pressure 131/54 L Pulse Oximetry 93 09/22/22 07:54 09/22/22 07:57 09/22/22 07:59 Temperature 97.6 F 97.6 F 97.6 F Pulse Rate 48 L 70 92 Respiratory Rate 16 20 20 Blood Pressure 132/47 L 110/94 H 108/82 Pulse Oximetry 96 95 95 Intake/Output Intake/Output: Intake & Output 09/19/22 09/20/22 09/21/22 09/22/22 23:59 23:59 23:59 23:59 Intake Total 1000 600 Output Total 200 1250 Balance 800 -650 Meds/Results Medications: Active Medications Generic Name Dose Route Start L
--- NOTE | 2022-09-22 13:13 | PM.CNCAR ---
Assessment and Plan Assessment and plan (1) Syncope: Code(s): R55 - Syncope and collapse <MELODIE Spencer - Last Filed: 09/22/22 15:52> Status: Acute <Zulema A. VivianaMELODIE montano - Last Filed: 09/22/22 15:52> Assessment and Plan: By history collected from the patient's daughter, this event is most likely a result of orthostatic hypotension. Apparently he did not lose consciousness. No evidence by ECG or telemetry of any significant bradyarrhythmia or pauses. For his orthostasis would recommend: Avoid hypotension Compression stockings Continue to check orthostatic vital signs Continue telemetry No indication for midodrine at this time as he is normotensive and first set of orthostatic vital signs were negative <MELODIE Spencer - Last Filed: 09/22/22 15:52> (2) Coronary artery disease: Code(s): I25.10 - Atherosclerotic heart disease of [place] coronary artery without angina pectoris <MELODIE Spencer - Last Filed: 09/22/22 15:52> Status: Acute <Zulema Vane MELODIE Michelle - Last Filed: 09/22/22 15:52> Assessment and Plan: History of CAD with stents placed in 2019 following a NSTEMI. His coronary disease is stable. Continue ASA, statin. <MELODIE Spencer - Last Filed: 09/22/22 15:52> (3) Heart failure with reduced ejection fraction: Code(s): I50.20 - Unspecified systolic (congestive) heart failure <MELODIE Spencer - Last Filed: 09/22/22 15:52> Status: Acute <MELODIE Spencer - Last Filed: 09/22/22 15:52> Assessment and Plan: History of an ischemic cardiomyopathy and systolic heart failure with EF 30-35%. He is not on any medical therapy for this for reasons that are unclear, but presumably because of previous orthostasis. Despite being on any medical therapy he is well compensated and does not have any signs of heart failure on exam. He follows with Dr. Joseph at [place] and will defer any decisions about GDMT for his cardiomyopathy to him. <MELODIE Spencer - Last Filed: 09/22/22 15:52> (4) Bradycardia: Code(s): R00.1 - Bradycardia, unspecified <Zulema Cifuentes MELODIE Michelle - Last Filed: 09/22/22 15:52> Status: Acute <Zulema Vane FernándezMELODIE montano - Last Filed: 09/22/22 15:52> Assessment and Plan: He has sinus bradycardia with occasional PAC's. On telemetry review I did not see any significant bradycardia, pauses, or high degree block. BP is adequate despite mild bradycardia. <MELODIE Spencer - Last Filed: 09/22/22 15:52> (5) Orthostatic hypotension: Code(s): I95.1 - Orthostatic hypotension <MELODIE Spencer - Last Filed: 09/22/22 15:52> Status: Acute <Zulema VillegasSimon MELODIE Michelle - Last Filed: 09/22/22 15:52> Assessment and Plan: He has a history of orthostatic hypotension. Recommendations as above. 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 Questionable candidate for custodial anticoagulation because of his orthostatic hypotension, dementia, and increased risk for falls. <MELODIE Spencer - Last Filed: 09/22/22 15:52> Assessment and Plan: Attending Addendum: I have personally seen and examined this patient at bedside. I agree with the above documentation and plan of care as outlined. -Patient is a very pleasant gentleman the past medical history significant for dementia, history of prior myocardial infarction, ischemic cardiomyopathy, history of LV thrombus on Eliquis, hyperlipidemia in history of recurrent near-syncope and syncope and documented orthostatic hypotension was once again admitted to the hospital with possible syncope at [facility]
[2022-09-22] MEDS: SODIUM CHLORIDE 0.9% IV 250 ML 100 ML IV CONT (17:58)
[2022-09-23] VITALS: PULSE 98
[2022-09-23 04:00] VITALS: PULSE 53
[2022-09-23 06:00] VITALS: BP 150/69; PULSE 64; RESP 18; TEMP 35.9; O2SAT 99
[2022-09-23 08:00] VITALS: BP 141/58; PULSE 46; PULSE 48; TEMP 35.6; O2SAT 99
[2022-09-23 08:11] VITALS: BP 134/67; BP 136/61
[2022-09-23] MEDS: PANTOPRAZOLE 40 MG TABLET PO (09:20)
[2022-09-23] MEDS: CHOLECALCIFEROL 1,000 UNITS TABLET 2000 UNITS PO (09:20)
[2022-09-23] MEDS: ASPIRIN 81 MG CHEWABLE TABLET PO (09:20)
[2022-09-23] MEDS: APIXABAN 2.5 MG TABLET PO (09:20)
--- NOTE | 2022-09-23 10:52 | PM.DS ---
DS: Admitting Diagnosis Discharge Date September 23, 2022 Admitting Diagnosis Near syncope DS: Discharge Diagnosis Discharge Diagnosis (1) Syncope: Code(s): R55 - Syncope and collapse Status: Acute Assessment and Plan: Telemetry reviewed. He does have frequent PVCs. Have Cardiology evaluate the patient. Also times it appears his heart rates in the 40s. No repeat of symptoms in the hospital. Blood pressure appears to be labile. Will await plans per Cardiology. (2) Chronic kidney disease, stage 3: Code(s): N18.30 - Chronic kidney disease, stage 3 unspecified Status: Acute (3) Heart failure with reduced ejection fraction: Code(s): I50.20 - Unspecified systolic (congestive) heart failure Status: Acute (4) Bradycardia: Code(s): R00.1 - Bradycardia, unspecified Status: Acute (5) Hypertension: Qualifiers: Hypertension type: primary hypertension Qualified Code(s): I10 - Essential (primary) hypertension Code(s): I10 - Essential (primary) hypertension Status: Chronic (6) Benign prostatic hyperplasia: Code(s): N40.0 - Benign prostatic hyperplasia without lower urinary tract symptoms Status: Acute (7) Chronic anticoagulation: 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 Workup negative. Cardiology was consult frequent PVCs however no further workup was indicated. Patient is otherwise stable now on has had any more syncopal episodes he can be discharged home. Time Spent with Patient Time attestation: Total time spent providing and/or coordinating discharge services: Exam Narrative: General: Chronically ill-appearing gentleman in the semi-Ott position in bed in no acute distress. Weight: 73 kg. BMI: 24.5. HEENT: Wearing corrective lenses. He is very hard of hearing. PERRL, EOMI. Sclera anicteric. Conjunctiva mildly injected. Tacky mucous membranes. Oropharynx poorly visualized. Neck: Supple. No obvious carotid bruits. Respiratory: Lungs are clear to auscultation bilaterally. Cardiovascular: Regular rate and rhythm with S1-S2. Gastrointestinal: Abdomen is soft, nontender, and nondistended with positive bowel sounds. Skin: Warm and dry. No rash or lesions on limited exam. Extremities: No cyanosis, clubbing, or significant edema. Radial and pedal pulses intact. Neurological: Alert to name and date of . He is aware that he is in the hospital. Cranial nerves 2-12 are grossly intact. Speech is clear. No facial asymmetry. No gross focal deficits to casual conversation. Psychiatric: Pleasantly confused and cooperative. Appropriate mood. Discharge Plan Discharge Attending physician on discharge: Brenton Del Real Consulting providers: Dea Mendoza ; Dontae Koo Discharging Clinician: Brenton Del Real Patient Disposition: Home, Self-Care Activity: no preference Diet: as tolerated Stand Alone Forms: General Discharge Information Follow-up/Referrals: Belgica,Wei Trujillo MD [Primary Care Provider] - Discharge Medications: Continued Eliquis 2.5 mg tablet 2.5 mg PO BID tamsulosin 0.4 mg capsule 0.4 mg PO HS Qty: 7 0RF quetiapine 25 mg tablet 12.5 mg PO QHS atorvastatin 80 mg tablet 80 mg PO HS pantoprazole 40 mg tablet,delayed release (DR/EC) 40 mg PO DAILY aspirin 81 mg Tablet 81 mg PO DAILY cholecalciferol (vitamin D3) 50 mcg (2,000 unit) Tablet 50 mcg PO DAILY Date of admission: 09/21/22 14:17 Primary Care Provider: Wei Montaño Admitting Provider: Ita Allison Attending physician on admission: Ita Allison Condition: Improved
[2022-09-23 13:47] VITALS: BP 144/64; PULSE 52; RESP 20; TEMP 36.1; O2SAT 98
== END 2022-09-23 14:50 | disposition home or self-care (01) ==
LOC: ANHED 11:58 → ANH3MEDSUR 15:33
PROVIDERS: Physician Assistant; Admitting Provider Student in an Organized Health Care Education/Training Program; Emergency Provider Physician Assistant; PCP Internal Medicine; Visit Provider Chiropractor
DX: R55 Syncope and collapse (principal); I25.10 Atherosclerotic heart disease of native coronary artery without angina pectoris; I13.0 Hypertensive heart and chronic kidney disease with heart failure and stage 1 through stage 4 chronic kidney disease, or unspecified chronic kidney disease; N18.30 Chronic kidney disease, stage 3 unspecified; I50.20 Unspecified systolic (congestive) heart failure; R00.1 Bradycardia, unspecified; K21.9 Gastro-esophageal reflux disease without esophagitis; I67.2 Cerebral atherosclerosis; I67.89 Other cerebrovascular disease; N40.0 Benign prostatic hyperplasia without lower urinary tract symptoms; J98.11 Atelectasis; M85.80 Other specified disorders of bone density and structure, unspecified site; R94.31 Abnormal electrocardiogram [ECG] [EKG]; Z20.822 Contact with and (suspected) exposure to COVID-19; Z95.5 Presence of coronary angioplasty implant and graft; Z98.2 Presence of cerebrospinal fluid drainage device; Z79.82 Long term (current) use of aspirin; Z79.01 Long term (current) use of anticoagulants; Z79.899 Other long term (current) drug therapy; Z86.73 Personal history of transient ischemic attack (TIA), and cerebral infarction without residual deficits; Z87.891 Personal history of nicotine dependence
CPT/HCPCS: 36415; 70250; 70450; 71045; 71046; 74018; 80053; 81001; 83036; 83735; 84443; 84484; 85025; 85027; 85610; 85730; 87636; 93005; 96360; 96361; 99285; A9270; G0378; J7040; J7050

== ENCOUNTER 2023-12-11 22:23 | Emergency (ER) | payer MEDICARE, SELFPAY ==
--- NOTE | ~2023-12-11 | XR_ITS ---
EXAMINATION: XR chest 1V portable DATE: 12/11/2023 22:40 INDICATION: Weakness. TECHNIQUE: A single frontal view of the chest was obtained. COMPARISON: Chest 2 views 09/21/2022 FINDINGS: There are airspace opacities in the lower lung zones. No pleural effusion or pneumothorax. Cardiomegaly is noted. A right-sided ventriculoperitoneal shunt is noted. IMPRESSION: 1. Airspace opacities in the lower lung zones, consistent with atelectasis versus pneumonia. 2. Cardiomegaly. Reviewed, dictated and finalized at location [facility]. IMPRESSION: 1. Airspace opacities in the lower lung zones, consistent with atelectasis vers us pneumonia. 2. Cardiomegaly.
--- NOTE | 2023-12-11 22:27 | ECG_ITS ---
SEE SCANNED COPY FOR CONFIRMED REPORT MTDD
[2023-12-11 22:28] VITALS: BP 132/63; PULSE 75; PULSE 79; RESP 22; TEMP 37.4; O2SAT 100
[2023-12-11 22:32] VITALS: O2SAT 100
[2023-12-11 22:50] LABS: Basophils Percent Auto 0.1 % (0.2-1.2); Hematocrit 41.9 % (42.0-52.0); Hemoglobin 13.6 g/dL (14.0-18.0); Immature Granulocyte Absolute 0.01 K/mm3 (0.00-0.031); Immature Granulocyte Percent A 0.1 % (0-0.5); Lymphocytes Absolute Auto 0.74 K/mm3 (0.9-3.2); Mean Corpuscular HGB Conc 32.5 g/dl (32-36); Mean Corpuscular Volume 98.6 fl (80-100); Monocytes Absolute Auto 0.6 K/mm3 (0.1-0.6); Monocytes Percent Auto 8.5 % (2.6-8.5); Neutrophils Percent Auto 81.3 % (45.5-73.1); Platelet Count Result 181 k/mm3 (150-375); Red Blood Count 4.25 M/mm3 (4.6-6.20); Red Cell Distribution Width 13.2 % (11.5-14.5); White Blood Count 7.4 K/mm3 (4.5-10.0)
[2023-12-11 23:00] LABS: Alanine Aminotransferase 22 U/L (6-50); Albumin Level 4.1 g/dL (3.5-5.1); Alkaline Phosphatase 54 U/L (38-126); Anion Gap 9 mmol/L (4-12); Aspartate Amino Transferase 33 U/L (17-59); Bilirubin,Total 1.2 mg/dL (0.2-1.3); Blood Urea Nitrogen 24 mg/dL (9-20); Calcium 9.1 mg/dL (8.4-10.2); Carbon Dioxide 20 mmol/L (22-30); Chloride 109 mmol/L (98-107); Estimated CRCL calculation 33 ml/min; Estimated Glomerular Filt Rate 48; Glucose 141 mg/dL (65-110); Potassium 3.8 mmol/L (3.4-5.0); Sodium 138 mmol/L (137-145)
[2023-12-11 23:56] VITALS: BP 118/76; PULSE 71; RESP 20; O2SAT 97
--- NOTE | 2023-12-12 00:01 | ED.GENADULT ---
HPI - General Adult General Chief complaint: Weakness Stated complaint: weakness, diarrhea Time Seen by Provider: 12/11/23 22:45 History of Present Illness HPI narrative: 88-year-old male presenting to the emergency department for evaluation for multiple episodes of diarrhea today. Patient is at his neuro baseline. Patient is A&O x1. Patient does have dementia. Patient lives at home on his own but does have caregivers during the day. Family was with him today and noted that he was having some diarrhea. Patient had some decreased p.o. intake. Upon arrival emergency department patient is resting comfortably and has no complaints. Related Data Home Medications Medication Instructions Recorded Confirmed aspirin 81 mg tablet 81 mg PO DAILY 12/21/20 09/21/22 atorvastatin 80 mg tablet 80 mg PO HS 12/21/20 09/21/22 pantoprazole 40 mg tablet,delayed 40 mg PO DAILY 12/21/20 09/21/22 release quetiapine 25 mg tablet 12.5 mg PO QHS sleep 12/21/20 09/21/22 apixaban 2.5 mg tablet (Eliquis) 2.5 mg PO BID 04/21/21 09/21/22 cholecalciferol (vitamin D3) 50 50 mcg PO DAILY 09/21/22 09/21/22 mcg (2,000 unit) tablet Allergies Allergy/AdvReac Type Severity Reaction Status Date / Time cephalexin Allergy Unknown Rash Verified 09/21/22 11:55 Review of Systems Review of Systems: All systems reviewed & are unremarkable except as noted in HPI and below PMFSH Past Medical History Medical History Benign prostatic hyperplasia Bladder cancer Cerebrovascular accident (2020) Chronic anticoagulation Chronic kidney disease, stage 3 Coronary artery disease Gastroesophageal reflux disease Hearing loss Heart failure with reduced ejection fraction X 2021 showed a moderately enlarged LV chamber, moderately reduced LV systolic function with an EF of 30 to 35%, and grade 1 diastolic dysfunction. Hypercholesterolemia Hypertension Syncope Transient ischemic attack Surgical History Surgical History History of bilateral cataract extraction History of cardiac catheterization History of coronary artery stent placement History of transurethral resection of bladder tumor (TURBT) History of ventriculoperitoneal shunting Family History Family History Father Cerebrovascular accident Mother Cerebrovascular accident Sibling Malignant neoplasm of prostate Myocardial infarction Cerebrovascular accident Social History Social History Social History: Healthcare power of ip attorney: Kristina Guaman, daughter. Code status: Do not resuscitate. Smoking packs per day: 0.5 Smoking cigarettes per day: 10.0 Years smoked: 41 Smoking pack-years: 20.50 Smoking status: Former smoker Tobacco type: cigarettes and pipe Second hand tobacco smoke exposure: No Alcohol intake: never Substance use: never Substance use type: does not use Additional living arrangements comments: . Patient lives in his own home in [place] with his CT. Family members in caretakers take turns coming into the house multiple times a day. He lives on [address] 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 Spiritual care concerns: No Exam Narrative: APPEARANCE: Well appearing, no pain, no distress, well-nourished. HEAD: normocephalic, atraumatic. EYES: PERRLA/EOMI, conjunctivae clear. NOSE: Normal no drainage EARS:TMS clear with good light reflex. THROAT: Pharynx clear, no exudate. NECK: Supple. No adenopathy, no masses. RESPIRATORY: Airway patent, respirations nonlabored. Clear to auscultation bilaterally, no rales, rhonchi, wheezing. CARDIOVASCULAR: Regular rate and rhythm without murmurs rubs or gallops. ABDOMINAL: Soft, nontender, nondistended, normal bowel sounds MUSCULOSKELETAL: Mov
[2023-12-12 00:36] LABS: Appearance Urine Clear (Clear); Bacteria Urine None Seen /hpf; Bilirubin Urine Negative (Negative); Blood Urine Trace (Negative); Color Urine Dark Yellow (Yellow); Glucose Urine UA Negative (Negative); Ketones Urine Trace mg/dL (Negative); Leukocyte Esterase Ur Trace LEU/UL (Negative); Nitrate Urine Negative (Negative); Protein Urine 1+ mg/dL (Negative); Specific Grav Ur 1.026 (1.001-1.035); Squamous Epithelial Cell Urine None Seen /hpf (Few); Urobilinogen Urine 0.2 mg/dL (<2.0); WBC Urine 0-5 /hpf (0-3); pH Urine 5.5 (5.0-9.0)
[2023-12-12 00:40] LABS: Add Urine Microscopic? YES
== END 2023-12-12 01:07 | disposition home or self-care (01) ==
PROVIDERS: Emergency Provider Emergency Medicine; PCP Internal Medicine
DX: R19.7 Diarrhea, unspecified (principal); F03.90 Unspecified dementia, unspecified severity, without behavioral disturbance, psychotic disturbance, mood disturbance, and anxiety; Z79.82 Long term (current) use of aspirin; Z85.51 Personal history of malignant neoplasm of bladder; I50.9 Heart failure, unspecified; Z79.01 Long term (current) use of anticoagulants; N18.30 Chronic kidney disease, stage 3 unspecified; I25.10 Atherosclerotic heart disease of native coronary artery without angina pectoris; E78.00 Pure hypercholesterolemia, unspecified; I13.0 Hypertensive heart and chronic kidney disease with heart failure and stage 1 through stage 4 chronic kidney disease, or unspecified chronic kidney disease; Z87.891 Personal history of nicotine dependence
CPT/HCPCS: 36415; 71045; 80053; 81001; 85025; 93005; 99283; 99284